=== PATIENT | male | born 1955 | race Caucasian/White ===

== ENCOUNTER 2020-04-12 06:49 | Emergency (ER) | payer BC, OTHER ==
--- OUTSIDE RECORDS SUMMARY | 2020-04-12 06:52 | XMS REPORT | Clinical Summary ---
:1955 Author Organization [facility] Address [address] [place] [id number] Care Team Providers Name Role Phone Maksim Mckinney MD Primary Care Provider Allergies Not on File Medications Not on file Active Problems Not on file Social History Tobacco Use Types Packs/Day Years Used Date Never Assessed Sex Assigned at Date Recorded Not on file Last Filed Vital Signs Not on file Plan of Treatment Health Maintenance Due Date Last Done Comments COLONOSCOPY SCREENING 12/10/2007 SHINGLES VACCINES (#1) 12/10/2007 INFLUENZA VACCINE 01/10/2020 Results Not on fileafter 04/12/2019 Advance Directives For more information, please contact: [phone] Type Date 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
[2020-04-12 07:40] LABS: Protime INR 1.05
[2020-04-12 07:41] LABS: Absolute Lymphocytes (CBC) 0.8 K/uL (0.7-4.9); Hematocrit 44.1 % (39.6-49.0); Lymphocytes % 18.3 % (15.3-44.8); MPV 8.2 fL (7.6-11.3); RBC Red Blood Cell Count 4.68 M/uL (4.33-5.43)
[2020-04-12 07:56] LABS: ALT/SGPT 35 U/L (12-78); AST/SGOT 25 U/L (15-37); Albumin 4.1 g/dL (3.4-5.0); Alkaline Phosphatase 78 U/L (45-117); BUN Blood Urea Nitrogen 15 mg/dL (7-18); Bicarbonate 28 mmol/L (21-32); Bilirubin Direct 0.1 mg/dL (0-0.2); Bilirubin Total 0.5 mg/dL (0.2-1.0); Glucose Level 129 mg/dL (74-106); NT PRO-BNP 24 pg/mL (<125); Potassium 3.8 mmol/L (3.5-5.1); Protein, Total 7.6 g/dL (6.4-8.2); Sodium Level 142 mmol/L (136-145); Troponin (Emerg Dept Use Only) < 0.02 ng/mL (0.0-0.045)
--- NOTE | 2020-04-12 08:32 | RAD REPORT ---
EXAM DESCRIPTION: CT - Head Brain Wo Cont - 04/12/2020 7:31 am CLINICAL HISTORY: DIZZINESS Headache, drowsiness, nausea and vomiting. COMPARISON: No comparisons TECHNIQUE: All CT scans are performed using dose optimization technique as appropriate and may inclu de automated exposure control or mA/KV adjustment according to patient size. FINDINGS: No intracranial hemorrhage, hydrocephalus or extra-axial fluid collection.No areas of brai n edema or evidence of midline shift. The paranasal sinuses and mastoids are clear. The calvarium is intact. IMPRESSION: No acute intracranial abnormality.
[2020-04-12] MEDS ORDERED: MECLIZINE HCL 12.5 MG TAB ONE (08:36)
[2020-04-12] MEDS ORDERED: DIAZEPAM 5 MG TABLET ONE (08:36)
[2020-04-12] MEDS ORDERED: DIAZEPAM 10 MG/2 ML INJ SYRINGE ONE (08:57)
--- NOTE | 2020-04-12 09:23 | RAD REPORT ---
EXAM DESCRIPTION: RAD - Chest Single View - 04/12/2020 7:37 am CLINICAL HISTORY: Chest maddison Chest pain. COMPARISON: No comparisons FINDINGS: Portable technique limits examination quality. The lungs are grossly clear. The heart is normal in size. No displaced fractures. IMPRESSION: No acute intrathoracic process suspected.
--- NOTE | 2020-04-12 09:58 | RAD REPORT ---
EXAM DESCRIPTION: MRI - Brain Wo Cont - 04/12/2020 9:32 am CLINICAL HISTORY: DIZZINESS Headache, drowsiness, CVA symptomology COMPARISON: Head Brain Wo Cont dated 04/12/2020 TECHNIQUE: Multi-sequence, multiplanar MR imaging of the brain was performed without contrast. FINDINGS: No intracranial hemorrhage, hydrocephalus or extra-axial fluid collections. No edema or sh ift of midline structures. No findings to suspect brain mass. DWI is negative for acute CVA. Midline structures are normally formed. Mastoid air cells and paranasal sinuses are clear. IMPRESSION: Negative for acute CVA or other acute intracranial abnormality.
--- NOTE | 2020-04-12 10:09 | ER ---
Nurse's Notes [facility] Name: Dana Selby Age: 64 yrs Sex: Male : 1955 Arrival Date: 04/12/2020 Time: 06:59 Bed 20 Private MD: Diagnosis: Dizziness and giddiness;Vertiginous syndromes in diseases classified elsewhere, unspecified ear Presentation: 04/12 07:08 Chief complaint: N/V and dizziness upon waking today. Coronavirus screen: Client hb presents with at least one sign or symptom that may indicate coronavirus-19. Standard/surgical mask placed on the client. Provider contacted for isolation considerations. Ebola Screen: No symptoms or risks identified at this time. Initial Sepsis Screen: Does the patient meet any 2 criteria? No. Patient's initial sepsis screen is negative. Does the patient have a suspected source of infection? No. Patient's initial sepsis screen is negative. Risk Assessment: Do you want to hurt yourself or someone else? Patient reports no desire to harm self or others. Onset of symptoms was April 12, 2020. 07:08 Method Of Arrival: Wheelchair 07:08 Acuity: CYDNEY 3 hb 07:09 Care prior to arrival: Medication(s) given: zofran 4 mg. Triage Assessment: 07:15 General: Appears in no apparent distress. comfortable, well groomed, well developed, sv Behavior is calm, cooperative, appropriate for age, Last known well was last night at 2200 when he went to bed. Pt woke up this morning at 0530 with the dizziness and nausea. Pt reports that he has had the headache intermittently for the last 2 weeks, has taken a couple of meds OTC with no relief.. Pain: Complains of pain in occipital area and base of the skull Pain currently is 2 out of 10 on a pain scale. Pain began intermittently for 2 weeks. Is intermittent. Neuro: Level of Consciousness is awake, alert, obeys commands, Oriented to person, place, time, situation, County Engineer are equal bilaterally Moves all extremities. Full function Gait is steady, Speech is normal, Facial symmetry appears normal, Facial symmetry: tongue is midline, Reports dizziness, since 0530 headache occipital area, Denies numbness. Cardiovascular: Patient's skin is warm and dry. Rhythm is sinus rhythm. Respiratory: Airway is patent Respiratory effort is even, unlabored, Respiratory pattern is regular, symmetrical. GI: Patient currently denies nausea, stated that he took some Zofran this morning and the nausea has subsided. Derm: Skin is intact, Skin is pink, warm \T\ dry. Musculoskeletal: Circulation, motion, and sensation intact. Range of motion: intact in all extremities. Historical: - Allergies: 07:09 No Known Allergies; hb - Home Meds: 07:09 None [Active]; hb - PMHx: 07:09 Hypertension; hb - PSHx: 07:09 None; hb - Immunization history:: Adult Immunizations up to date. - Social history:: Smoking status: Patient denies any tobacco usage or history of. - Family history:: not pertinent. Screenin:07 Abuse screen: Denies threats or abuse. Denies injuries from another. Nutritional sv screening: No deficits noted. Tuberculosis screening: No symptoms or risk factors identified. Fall Risk None identified. 07:20 VAN Screening: Arm Drift: Patient shows no arm weakness. Patient is VAN negative. sv 07:43 Patient has been NPO before screening. The patient is alert, able to follow commands. sv The patient does not exhibit slurred or garbled speech The patient is not exhibiting difficulty speaking. The patient does not exhibit difficulty understanding words. The patient is able to swallow own secretions with no drooling or need for suction. Patient tolerated one teaspoon of water. No drooling, immediate coughing, gurgling, or clearing of the throat was noted. The patient tolerated 90mL of water. No drooling, immediate coughing, gurgling, or clearing of the throat was noted. The patient passed the bedside swallow screening. Oral medications may be given as ordered. Contact Physician for further diet orders. Provider notified of bedside swallow screening results: Krish Fletcher MD. Assessment: 07:44 Reassessment: Patient appears in no apparent distress at this time. No changes from sv previously documented assessment. Patient and/or family updated on plan of care and expected duration. Pain level reassessed. Patient is alert, oriented x 3, equal unlabored respirations, skin warm/dry/pink. 08:25 Reassessment: Patient appears in no apparent distress at this time. No changes from sv previously documented assessment. Patient and/or family updated on plan of care and expected duration. Pain level reassessed. Patient is alert, oriented x 3, equal unlabored respirations, skin warm/dry/pink. 08:48 Reassessment: Dacia from MRI called and stated that the pt was anxious and sv claustrophobic. Dr Rubio ordered Valium 2mg IVP to be given. Medication given by myself in MRI. Instructed pt to inform staff if he is to need more medication. He stated he would. 09:21 Reassessment: Pt currently still in MRI. sv 10:20 Reassessment: Patient and/or family updated on plan of care and expected duration. Pain ll1 level reassessed. Patient is alert, oriented x 3, equal unlabored respirations, skin warm/dry/pink. Vital Signs: 07:08 BP 154 / 79; Pulse 71; Resp 16; Temp 97.8(O); Pulse Ox 99% on R/A; Weight 78.02 kg; hb Height 5 ft. 6 in. (167.64 cm); Pain 0/10; 08:20 BP 142 / 86; Pulse 60 MON; Resp 14; Pulse Ox 97% on R/A; sv 09:32 BP 158 / 83; Pulse 71 MON; Resp 14; Pulse Ox 100% ; sv 10:34 BP 136 / 82; Pulse 76; Resp 17; Pulse Ox 99% ; ll1 07:08 Body Mass Index 27.76 (78.02 kg, 167.64 cm) hb 08:20 Sinus Rhythm sv 09:32 Sinus Rhythm sv NIH Stroke Scale Scores: 07:20 NIHSS Score: 0 sv 08:21 NIHSS Score: 0 jose j ED Course: 06:59 Patient arrived in ED. am2 07:07 Josie Guadarrama, RN is Primary Nurse. sv 07:07 Arm band placed on Patient placed in an exam room, on a stretcher. sv 07:07 Patient has correct armband on for positive identification. Bed in low position. Call sv light in reach. Adult w/ patient. secured entrance monitor on. Pulse ox on. NIBP on. 07:08 Awaiting ED provider evaluation. sv 07:09 Triage completed. hb 07:15 Inserted saline lock: 20 gauge in right antecubital area, using aseptic technique. sv Blood collected. Flushed right antecubital with 5 ml normal saline. 07:16 EKG done, by ED staff, reviewed by Krish Fletcher MD. sv 07:[address] via wheelchair. sv 07:29 CT Head Brain wo Cont In Process Unspecified. EDMS 07:32 X-ray(s) taken. sv 07:35 Awaiting ED provider evaluation. sv 07:36 XRAY Chest (1 view) In Process Unspecified. EDMS 07:[address] Patient moved back from [address]. sv 07:38 Awaiting lab results, Awaiting radiology results. sv 08:02 Geoff Rubio MD is Attending Physician. jose j 08:06 ED physician to see patient. sv 08:28 Patient moved to MRI via wheelchair. sv 09:29 Patient moved back from MRI. sv 09:30 Awaiting radiology results. sv 09:32 Brain Wo Cont In Process Unspecified. EDMS 09:32 Brain Wo Cont Sent. sv 10:09 Bello Williamson MD is Referral Physician. jose j 10:35 No provider procedures requiring assistance completed. Patient did not have IV access ll1 during this emergency room visit. intact, bleeding controlled, No redness/swelling at site. Pressure dressing applied. Administered Medications: 08:25 Drug: Meclizine 50 mg Route: PO; sv 08:51 Follow up: Response: No adverse reaction sv 08:25 Drug: Valium 2.5 mg {Note: Pt stated that 5mg would be too much for him, pt wants to sv take half at this time.} Route: PO; 08:51 Follow up: Response: No adverse reaction; No change in condition sv 08:50 Drug: Valium 2 mg Route: IVP; Site: right antecubital; sv 09:32 Follow up: Response: No adverse reaction; Marked relief of symptoms sv 09:32 Not Given (Physician Discretion): Valium 2 mg IVP once sv Point of Care Testing: Blood Glucose: 07:15 Blood Glucose: 126 mg/dL; sv Ranges: Outcome: 10:09 Discharge ordered by . jose j 10:32 Patient left the ED. ll1 10:36 Discharged to home ambulatory. ll1 10:36 Condition: stable 10:36 Discharge instructions given to patient, Instructed on discharge instructions, follow up and referral plans. medication usage, Demonstrated understanding of instructions, follow-up care, medications, Prescriptions given X 3. NIH Stroke Scale - NIH Stroke Score Date: 04/12/2020 Time: 07:20 Total Score = 0 1a. Level of Consciousness (LOC) - 0(Alert) 1b. Level of Consciousness (LOC) (Year \T\ Age) - 0(Both) 1c. LOC Commands (Open \T\ Closes Eyes/Cement Mason Helper) - 0(Both) 2. Best Gaze (Lateral Gaze Paresis) - 0(Normal) 3. Visual Field Loss - 0(No visual loss) 4. Facial Palsy - 0(Normal) 5a. Left Arm: Motor (10-second hold) - 0(No drift) 5b. Right Arm: Motor (10-second hold) - 0(No drift) 6a. Left Leg: Motor (5-second hold - always test supine) - 0(No drift) 6b. Right Leg: Motor (5-second hold - always test supine) - 0(No drift) 7. Limb Ataxia (finger/nose \T\ heel/willis - test with eyes open) - 0(Absent) 8. Sensory Loss (pinprick arms/legs/face) - 0(Normal) 9. Best Language: Aphasia (description/naming/reading) - 0(No aphasia) 10. Dysarthria (speech clarity - read or repeat words) - 0(Normal) 11. Extinction and Inattention (visual/tactile/auditory/spatial/personal) - 0(No abnormality) Initials: NIH Stroke Scale - NIH Stroke Score Date: 04/12/2020 Time: 08:21 Total Score = 0 1a. Level of Consciousness (LOC) - 0(Alert) 1b. Level of Consciousness (LOC) (Year \T\ Age) - 0(Both) 1c. LOC Commands (Open \T\ Closes Eyes/Cement Mason Helper) - 0(Both) 2. Best Gaze (Lateral Gaze Paresis) - 0(Normal) 3. Visual Field Loss - 0(No visual loss) 4. Facial Palsy - 0(Normal) 5a. Left Arm: Motor (10-second hold) - 0(No drift) 5b. Right Arm: Motor (10-second hold) - 0(No drift) 6a. Left Leg: Motor (5-second hold - always test supine) - 0(No drift) 6b. Right Leg: Motor (5-second hold - always test supine) - 0(No drift) 7. Limb Ataxia (finger/nose \T\ heel/willis - test with eyes open) - 0(Absent) 8. Sensory Loss (pinprick arms/legs/face) - 0(Normal) 9. Best Language: Aphasia (description/naming/reading) - 0(No aphasia) 10. Dysarthria (speech clarity - read or repeat words) - 0(Normal) 11. Extinction and Inattention (visual/tactile/auditory/spatial/personal) - 0(No abnormality) Initials: jose j Signatures: Dispatcher [employer] EDJosie Heaton RN RN sv Anderson, Corey, MD MD cha Baxter, Heather, RN RN Caitlin Rodgers [facility] Lilian Mcclain RN RN ll1 Corrections: (The following items were deleted from the chart) 07:37 07:15 General: Appears in no apparent distress. comfortable, well groomed, well sv developed, Behavior is calm, cooperative, appropriate for age, sv 09:31 09:30 To radiology for MR STROKE PROTOCOL+MRI.BEE. EDMS
--- NOTE | 2020-04-12 10:10 | EDPHYS ---
Physician Documentation [facility] Name: Dana Selby Age: 64 yrs Sex: Male : 1955 Arrival Date: 04/12/2020 Time: 06:59 Bed 20 Private MD: DIANA Physician Geoff Rubio HPI: 04/12 08:21 This 64 yrs old Male presents to ER via Wheelchair with complaints of jose j Dizziness, Nausea. 08:21 The patient presents with dizziness, a sense of confusion, sense of spinning. Onset: jose j The symptoms/episode began/occurred 4 hour(s) ago. Context: occurred at home, occurred while the patient was getting up from bed. Modifying factors: The symptoms are alleviated by closing eyes, holding head still, the symptoms are aggravated by movement of head, standing up. Associated signs and symptoms: Pertinent positives: headache. Severity of symptoms: At their worst the symptoms were mild. Patient's baseline: Neuro: alert and fully oriented. Historical: - Allergies: 07:09 No Known Allergies; hb - Home Meds: 07:09 None [Active]; hb - PMHx: 07:09 Hypertension; hb - PSHx: 07:09 None; hb - Immunization history:: Adult Immunizations up to date. - Social history:: Smoking status: Patient denies any tobacco usage or history of. - Family history:: not pertinent. ROS: 08:21 Constitutional: Negative for fever, chills, and weight loss, Eyes: Negative for injury, jose j pain, redness, and discharge, ENT: Negative for injury, pain, and discharge, Neck: Negative for injury, pain, and swelling, Cardiovascular: Negative for chest pain, palpitations, and edema, Respiratory: Negative for shortness of breath, cough, wheezing, and pleuritic chest pain, Abdomen/GI: Negative for abdominal pain, nausea, vomiting, diarrhea, and constipation, Back: Negative for injury and pain, : Negative for injury, bleeding, discharge, and swelling, MS/Extremity: Negative for injury and deformity, Skin: Negative for injury, rash, and discoloration, Psych: Negative for depression, anxiety, suicide ideation, homicidal ideation, and hallucinations, Allergy/Immunology: Negative for hives, rash, and allergies, Endocrine: Negative for neck swelling, polydipsia, polyuria, polyphagia, and marked weight changes, Hematologic/Lymphatic: Negative for swollen nodes, abnormal bleeding, and unusual bruising. 08:21 Neuro: Positive for dizziness, headache, of the right frontal area, right side of the back of head, right occipital area and right base of the skull. Exam: 08:21 Constitutional: This is a well developed, well nourished patient who is awake, alert, jose j and in no acute distress. Head/Face: Normocephalic, atraumatic. Eyes: Pupils equal round and reactive to light, extra-ocular motions intact. Lids and lashes normal. Conjunctiva and sclera are non-icteric and not injected. Cornea within normal limits. Periorbital areas with no swelling, redness, or edema. ENT: Nares patent. No nasal discharge, no septal abnormalities noted. Tympanic membranes are normal and external auditory canals are clear. Oropharynx with no redness, swelling, or masses, exudates, or evidence of obstruction, uvula midline. Mucous membranes moist. Neck: Trachea midline, no thyromegaly or masses palpated, and no cervical lymphadenopathy. Supple, full range of motion without nuchal rigidity, or vertebral point tenderness. No Meningismus. Chest/axilla: Normal chest wall appearance and motion. Nontender with no deformity. No lesions are appreciated. Cardiovascular: Regular rate and rhythm with a normal S1 and S2. No gallops, murmurs, or rubs. Normal PMI, no JVD. No pulse deficits. Respiratory: Lungs have equal breath sounds bilaterally, clear to auscultation and percussion. No rales, rhonchi or wheezes noted. No increased work of breathing, no retractions or nasal flaring. Abdomen/GI: Soft, non-tender, with normal bowel sounds. No distension or tympany. No guarding or rebound. No evidence of tenderness throughout. Back: No spinal tenderness. No costovertebral tenderness. Full range of motion. Skin: Warm, dry with normal turgor. Normal color with no rashes, no lesions, and no evidence of cellulitis. MS/ Extremity: Pulses equal, no cyanosis. Neurovascular intact. Full, normal range of motion. Neuro: Awake and alert, GCS 15, oriented to person, place, time, and situation. Cranial nerves II-XII grossly intact. Motor strength 5/5 in all extremities. Sensory grossly intact. Cerebellar exam normal. Normal gait. Psych: Awake, alert, with orientation to person, place and time. Behavior, mood, and affect are within normal limits. 08:25 Neck: External neck: is normal, C-spine: appears grossly normal, no acute changes, jose j Thyroid: appears normal, no acute changes, Trachea: is midline with no obvious abnormalities, no acute changes, ROM/movement: is normal, no acute changes. 08:25 Cardiovascular: Rate: normal, Rhythm: regular, Pulses: Pulses are 4+ in bilateral radial, brachial, femoral, popliteal, posterior tibial and and dorsalis pedis arteries.. Heart sounds: normal, normal S1and S2, no S3 or S4, no murmur, no rub, no gallop, Edema: is not appreciated, JVD: is not appreciated. 08:28 ENT: TM's: not visable, because of cerumen, on the left. jose j Vital Signs: 07:08 BP 154 / 79; Pulse 71; Resp 16; Temp 97.8(O); Pulse Ox 99% on R/A; Weight 78.02 kg; hb Height 5 ft. 6 in. (167.64 cm); Pain 0/10; 08:20 BP 142 / 86; Pulse 60 MON; Resp 14; Pulse Ox 97% on R/A; sv 09:32 BP 158 / 83; Pulse 71 MON; Resp 14; Pulse Ox 100% ; sv 10:34 BP 136 / 82; Pulse 76; Resp 17; Pulse Ox 99% ; ll1 07:08 Body Mass Index 27.76 (78.02 kg, 167.64 cm) hb 08:20 Sinus Rhythm sv 09:32 Sinus Rhythm sv NIH Stroke Scale Scores: 07:20 NIHSS Score: 0 sv 08:21 NIHSS Score: 0 jose j MDM: 08:02 Patient medically screened. jose j 08:24 Differential diagnosis: cardiac arrhythmia, CVA, generalized weakness, idiopathic jose j dizziness, near-syncope, TIA, vertigo. Data reviewed: vital signs, nurses notes, lab test result(s), EKG, radiologic studies, CT scan, MRI, plain films. Data interpreted: lunchroom monitor: rate is 60 beats/min, rhythm is regular, Pulse oximetry: on room air is 97 %. Test interpretation: by ED physician or midlevel provider: ECG, plain radiologic studies. Counseling: I had a detailed discussion with the patient and/or guardian regarding: the historical points, exam findings, and any diagnostic results supporting the discharge/admit diagnosis, lab results, radiology results, the need for outpatient follow up, for definitive care, a neurologist. 04/12 07:20 Order name: Basic Metabolic Panel; Complete Time: 09:49 zb 04/12 07:20 Order name: CBC with Diff; Complete Time: 09:49 zb 04/12 07:20 Order name: LFT's; Complete Time: 09:49 zb 04/12 07:20 Order name: Magnesium; Complete Time: 09:49 zb 04/12 07:20 Order name: NT PRO-BNP; Complete Time: 09:49 zb 04/12 07:20 Order name: PT-INR; Complete Time: 09:49 zb 04/12 07:20 Order name: CT Head Brain wo Cont; Complete Time: 09:49 zb 04/12 07:20 Order name: Troponin (emerg Dept Use Only); Complete Time: 09:49 zb 04/12 07:20 Order name: XRAY Chest (1 view); Complete Time: 09:49 zb 04/12 07:32 Order name: Glucose, Ancillary Testing; Complete Time: 09:49 EDMS 04/12 09:32 Order name: Brain Wo Cont; Complete Time: 10:08 EDMS 04/12 07:20 Order name: EKG; Complete Time: 07:21 zb 04/12 07:20 Order name: Cardiac monitoring; Complete Time: 07:32 zb 04/12 07:20 Order name: EKG - Nurse/Tech; Complete Time: 07:32 zb 04/12 07:20 Order name: IV Saline Lock; Complete Time: 07:32 zb 04/12 07:20 Order name: Labs collected and sent; Complete Time: 07:32 zb 04/12 07:20 Order name: O2 Per Protocol; Complete Time: 07:32 zb 04/12 07:20 Order name: O2 Sat Monitoring; Complete Time: 07:32 zb Administered Medications: 08:25 Drug: Meclizine 50 mg Route: PO; sv 08:51 Follow up: Response: No adverse reaction sv 08:25 Drug: Valium 2.5 mg {Note: Pt stated that 5mg would be too much for him, pt wants to sv take half at this time.} Route: PO; 08:51 Follow up: Response: No adverse reaction; No change in condition sv 08:50 Drug: Valium 2 mg Route: IVP; Site: right antecubital; sv 09:32 Follow up: Response: No adverse reaction; Marked relief of symptoms sv 09:32 Not Given (Physician Discretion): Valium 2 mg IVP once sv Point of Care Testing: Blood Glucose: 07:15 Blood Glucose: 126 mg/dL; sv Ranges: Critical Glucose Levels:Adult <50 mg/dl or >400 mg/dl <40 mg/dl or >180 mg/dl Disposition: 04/12/20 10:09 Discharged to Home. Impression: Dizziness and giddiness, Vertiginous syndromes in diseases classified elsewhere, unspecified ear. - Condition is Stable. - Discharge Instructions: Benign Positional Vertigo, Dizziness, Vertigo, Near-Syncope, Qvtm-zh-[id number], Vertigo, Ookl-py-Ujkb, Aspirin and Your Heart, Dizziness, Coww-cw-Rpme. - Prescriptions for Meclizine 25 mg Oral Tablet - take 1 tablet by ORAL route every 8 hours As needed; 30 tablet. Zofran 4 mg Oral Tablet - take 1 tablet by ORAL route every 12 hours As needed; 20 tablet. Medrol (Jack) 4 mg Oral Tablets, Dose Pack - take 1 tablet by ORAL route as directed - follow package instructions; 1 packet. - Medication Reconciliation Form, Thank You Letter, Antibiotic Education, Prescription Opioid Use form. - Follow up: Private Physician; When: 2 - 3 days; Reason: Recheck today's complaints, Continuance of care, Re-evaluation by your physician. Follow up: Bello Williamson; When: 2 - 3 days; Reason: Recheck today's complaints, Continuance of care, Re-evaluation by your physician. - Problem is new. - Symptoms have improved. NIH Stroke Scale - NIH Stroke Score Date: 04/12/2020 Time: 07:20 Total Score = 0 1a. Level of Consciousness (LOC) - 0(Alert) 1b. Level of Consciousness (LOC) (Year \T\ Age) - 0(Both) 1c. LOC Commands (Open \T\ Closes Eyes/Drum Saw Operator) - 0(Both) 2. Best Gaze (Lateral Gaze Paresis) - 0(Normal) 3. Visual Field Loss - 0(No visual loss) 4. Facial Palsy - 0(Normal) 5a. Left Arm: Motor (10-second hold) - 0(No drift) 5b. Right Arm: Motor (10-second hold) - 0(No drift) 6a. Left Leg: Motor (5-second hold - always test supine) - 0(No drift) 6b. Right Leg: Motor (5-second hold - always test supine) - 0(No drift) 7. Limb Ataxia (finger/nose \T\ heel/willis - test with eyes open) - 0(Absent) 8. Sensory Loss (pinprick arms/legs/face) - 0(Normal) 9. Best Language: Aphasia (description/naming/reading) - 0(No aphasia) 10. Dysarthria (speech clarity - read or repeat words) - 0(Normal) 11. Extinction and Inattention (visual/tactile/auditory/spatial/personal) - 0(No abnormality) Initials: NIH Stroke Scale - NIH Stroke Score Date: 04/12/2020 Time: 08:21 Total Score = 0 1a. Level of Consciousness (LOC) - 0(Alert) 1b. Level of Consciousness (LOC) (Year \T\ Age) - 0(Both) 1c. LOC Commands (Open \T\ Closes Eyes/Drum Saw Operator) - 0(Both) 2. Best Gaze (Lateral Gaze Paresis) - 0(Normal) 3. Visual Field Loss - 0(No visual loss) 4. Facial Palsy - 0(Normal) 5a. Left Arm: Motor (10-second hold) - 0(No drift) 5b. Right Arm: Motor (10-second hold) - 0(No drift) 6a. Left Leg: Motor (5-second hold - always test supine) - 0(No drift) 6b. Right Leg: Motor (5-second hold - always test supine) - 0(No drift) 7. Limb Ataxia (finger/nose \T\ heel/willis - test with eyes open) - 0(Absent) 8. Sensory Loss (pinprick arms/legs/face) - 0(Normal) 9. Best Language: Aphasia (description/naming/reading) - 0(No aphasia) 10. Dysarthria (speech clarity - read or repeat words) - 0(Normal) 11. Extinction and Inattention (visual/tactile/auditory/spatial/personal) - 0(No abnormality) Initials: jose j Signatures: Dispatcher [employer] [facility] Josie Guadarrama, RN Geoff Watkins MD MD cha Baxter, Heather RN RN Lilian Burt RN RN ll1 Jory Mayorga RN RN zb Corrections: (The following items were deleted from the chart) 09:31 08:10 MR STROKE PROTOCOL+MRI.RAD.BRZ ordered. [facility] 10:32 10:09 04/12/2020 10:09 Discharged to Home. Impression: Dizziness and giddiness; ll1 Vertiginous syndromes in diseases classified elsewhere, unspecified ear. Condition is Stable. Discharge Instructions: Benign Positional Vertigo, Dizziness, Vertigo, Near-Syncope, Samy-da-Bryv, Vertigo, Jxhm-mg-Htuv, Aspirin and Your Heart, Dizziness, Hxpr-uu-Hcwj. Prescriptions for Meclizine 25 mg Oral Tablet - take 1 tablet by ORAL route every 8 hours As needed; 30 tablet, Zofran 4 mg Oral Tablet - take 1 tablet by ORAL route every 12 hours As needed; 20 tablet, Medrol (Jack) 4 mg Oral Tablets, Dose Pack - take 1 tablet by ORAL route as directed - follow package instructions; 1 packet. and Forms are Medication Reconciliation Form, Thank You Letter, Antibiotic Education, Prescription Opioid Use. Follow up: Private Physician; When: 2 - 3 days; Reason: Recheck today's complaints, Continuance of care, Re-evaluation by your physician. Follow up: Bello Williamson; When: 2 - 3 days; Reason: Recheck today's complaints, Continuance of care, Re-evaluation by your physician. Problem is new. Symptoms have improved. jose j
[2020-04-12 10:39] VITALS: TEMP 97.8
[2020-04-12 10:44] VITALS: BP 158/83; O2SAT 100
== END 2020-04-12 10:32 | disposition home or self-care (01) ==
LOC: ER 06:49
DX: R42 Dizziness and giddiness (principal); H82.9 Vertiginous syndromes in diseases classified elsewhere, unspecified ear; I10 Essential (primary) hypertension
CPT/HCPCS: 93005; 85025; 80048; 36415; 83735; 85610; 82947; 80076; 84484; 83880; 70450; 71045; 70551; 96374; 99285; J3360

== ENCOUNTER 2022-07-06 10:35 | Emergency (ER) | payer BC, OTHER ==
--- OUTSIDE RECORDS SUMMARY | 2022-07-06 10:39 | XMS REPORT | Continuity of Care Document ---
:1955 Author Organization [facility] t Address [address] [place] [place] [id number] Care Team Providers Name Role Phone Maksim Mckinney MD Primary Care Physician Maksim Mckinney MD Attending Clinician Problems This patient has no known problems. Allergies, Adverse Reactions, Alerts This patient has no known allergies or adverse reactions. Social History Social Habit Start Date Stop Date Quantity Comments Source Sex Assigned At [birth year] [facility] 00:00:00 00:00:00 Smoking Status Start Date Stop Date Source Tobacco smoking consumption unknown [facility] Medications This patient has no known medications. Procedures Procedure Date / Time Performed Performing Clinician [facility] e US VASCULAR SCREENING 2022-02-14 15:46:39 Maksim Mckinney [facility] HEART SCAN PLUS CT HEART SCAN PLUS W 2022-02-14 15:16:31 Maksim Mckinney [facility] PHYSICIAN ORDER Plan of Care Planned Activity Planned Date Details Comments Source Future Scheduled 2022-05-27 Hepatitis C screening [facility] Test 13:37:37 (procedure) [code = [id number]] Future Scheduled 2022-05-27 COLONOSCOPY SCREENING [facility] Test 13:37:37 [code = COLONOSCOPY SCREENING] Future Scheduled 2022-05-27 SHINGLES VACCINES (1 [facility] Test 13:37:37 of 2) [code = SHINGLES VACCINES (1 of 2)] Future Scheduled 2022-05-27 COVID-19 [facility]ACCINE ([facility] 13:37:37 Booster for Moderna series) [code = COVID-19 VACCINE (4 - Booster for Moderna series)] Future Scheduled 2022-05-27 INFLUENZA VACCINE [facility] Test 13:37:37 [code = INFLUENZA VACCINE] Encounters Start End Encounter Admission Attending Care Care Encounter Source Date/Time Date/Time Type Type Clinicians Facility Department ID 2022-02-14 2022-02-14 [facility], 1.2.840.1 [id number] [facility] 09:50:52 23:59:00 Encounter Maksim [id number] 3.430.2.7 Hospit a .3.308139 l .8 2022-02-14 2022-02-14 [facility] 1.2.840.1 [id number] Methodi 09:50:34 23:59:00 Encounter Maksim [id number] 3.430.2.7 Hospit a .3.801990 l .8 2022-02-14 2022-02-14 Outpatient [facility] [id number] 0[address] [place] 00:00:00 00:00:[address] 2022-02-14 2022-02-14 Outpatient [facility] [id number] [address] [place] [address] 00:00:00 00:00:[address] 2022-02-14 2022-02-14 Travel 1.2.840.1 [id number] [facility] 00:00:00 00:00:[id number] 3.430.2.7 0.2.7.3.698 Ho spita .[id number] 084.8 l .8 2022-01-19 2022-01-19 Transcribe [facility] 1.2.840.1 [id number] [facility] 00:00:00 00:00:00 Orders Maksim [id number] 3.430.2.7 Hospit a .3.490099 l .8 Results This patient has no known results.
--- NOTE | 2022-07-06 11:26 | RAD REPORT ---
EXAM DESCRIPTION: CT - Ct Stroke Brain Wo Cont - 07/06/2022 11:16 am CLINICAL HISTORY: Vertigo Headache, drowsiness, CVA symptomology COMPARISON: Head Brain Wo Cont dated 04/12/2020 TECHNIQUE: All CT scans are performed using dose optimization technique as appropriate and may inclu de automated exposure control or mA/KV adjustment according to patient size. FINDINGS: No intracranial hemorrhage, hydrocephalus or extra-axial fluid collection.No areas of brai n edema or evidence of midline shift. The paranasal sinuses and mastoids are clear. The calvarium is intact. IMPRESSION: No acute intracranial abnormality. If there is continued clinical concern for CVA, MR imaging of the brain would be recommended. The findings were discussed with Dr Schaefer in the ER on 07/06/2022 at 11:22 a.m. by telephone.
[2022-07-06] MEDS ORDERED: ONDANSETRON 4 MG/2 ML VIAL ONE (12:02)
[2022-07-06] MEDS ORDERED: MECLIZINE HCL 12.5 MG TAB ONE (12:02)
[2022-07-06 12:04] LABS: Absolute Lymphocytes (CBC) 0.8 K/uL (0.7-4.9); Hematocrit 46.3 % (39.6-49.0); Lymphocytes % 13.2 % (15.3-44.8); MCV 95.7 fL (80-100); MPV 7.4 fL (7.6-11.3); RBC Red Blood Cell Count 4.84 M/uL (4.33-5.43)
[2022-07-06 12:11] LABS: Protime INR 1.11
[2022-07-06 12:23] LABS: Potassium 3.5 mmol/L (3.5-5.1); Troponin High Sensitivity 7.9 pg/mL (<58.9)
--- NOTE | 2022-07-06 12:35 | ER ---
Nurse's Notes [facility] Name: Dana Selby Age: 66 yrs Sex: Male : 1955 Arrival Date: 07/06/2022 Time: 10:37 Bed 14 Private MD: Diagnosis: Other peripheral vertigo;Nausea with vomiting, unspecified Presentation: 07/06 10:45 Chief complaint: Patient states: "I'm here for vertigo and I've been taking meclizine aa5 every 8 hours and it hasn't touched it". Pt reports nausea and reports dull headache to right side of head. Coronavirus screen: At this time, the client does not indicate any symptoms associated with coronavirus-19. Ebola Screen: Patient denies travel to an Ebola-affected area in the 21 days before illness onset. Initial Sepsis Screen: Does the patient meet any 2 criteria? No. Patient's initial sepsis screen is negative. Does the patient have a suspected source of infection? No. Patient's initial sepsis screen is negative. Risk Assessment: Do you want to hurt yourself or someone else? Patient reports no desire to harm self or others. Onset of symptoms was June 2022. 10:45 Acuity: CYDNEY 3 aa5 10:45 Method Of Arrival: Ambulatory aa5 Triage Assessment: 12:10 Pain: Denies pain. kr3 13:04 General: Appears in no apparent distress. comfortable, Behavior is calm, cooperative, kr3 appropriate for age. Historical: - Allergies: 10:47 No Known Allergies; aa5 - Home Meds: 11:06 Famotidine Oral 40 mg daily [Active]; amlodipine oral 5 mg daily [Active]; atorvastatin aa5 20mg daily [Active]; losartan 25mg daily [Active]; Aspirin Oral 81 mg daily [Active]; - PMHx: 10:44 Hypertension; aa5 10:47 Hypercholesterolemia; aa5 - PSHx: 10:47 Vasectomy; aa5 - Immunization history:: Adult Immunizations unknown. - Social history:: Smoking status: Patient denies any tobacco usage or history of. Screenin:10 [facility] ED Fall Risk Assessment (Adult) History of falling in the last 3 months, kr3 including since admission No falls in past 3 months (0 pts) Confusion or Disorientation No (0 pts) Intoxicated or Sedated No (0 pts) Impaired Gait No (0 pts) Mobility Assist Device Used No (0 pt) Altered Elimination No (0 pt) Score/Fall Risk Level 0 - 2 = Low Risk Oriented to surroundings, Maintained a safe environment, Educated pt \\T\\ family on fall prevention, incl call for assistance when getting out of bed, Assessed \\T\\ reinforced patient's understanding of fall precautions, Hourly rounding (assess needs \\T\\ fall precautionary measures) done. Tuberculosis screening: No symptoms or risk factors identified. 13:03 Abuse screen: Denies threats or abuse. Nutritional screening: No deficits noted. kr3 Assessment: 12:35 Reassessment: Patient appears in no apparent distress at this time. Patient and/or kr3 family updated on plan of care and expected duration. Pain level reassessed. Patient is alert, oriented x 3, equal unlabored respirations, skin warm/dry/pink. Vital Signs: 10:45 BP 159 / 72; Pulse 72; Resp 16 S; Temp 97.7(TE); Pulse Ox 100% on R/A; Weight 79.38 kg aa5 (R); Height 5 ft. 6 in. (167.64 cm) (R); 12:36 BP 132 / 78; Pulse 53; Resp 18; Pulse Ox 99% on R/A; kr3 10:45 Body Mass Index 28.25 (79.38 kg, 167.64 cm) aa5 ED Course: 10:37 Patient arrived in ED. as 10:39 Chilo Schaefer MD is Attending Physician. jr11 10:44 Arm band placed on. aa5 10:46 Triage completed. aa5 10:50 Bed in low position. Call light in reach. Side rails up X 1. kr3 11:11 Pushpa Upton, WOLFGANG is Primary Nurse. kr3 11:17 CT Stroke Brain w/o Contrast In Process Unspecified. EDMS 12:01 Inserted saline lock: 22 gauge in left forearm, using aseptic technique. Blood kr3 collected. 12:36 Bello Williamson MD is Referral Physician. jr11 13:06 No provider procedures requiring assistance completed. IV discontinued, intact, kr3 bleeding controlled, No redness/swelling at site. Pressure dressing applied. Administered Medications: 12:07 Drug: Zofran (Ondansetron) 4 mg Route: IVP; Site: left forearm; kr3 13:07 Follow up: Response: No adverse reaction kr3 12:08 Drug: Meclizine 25 mg Route: PO; kr3 13:07 Follow up: Response: No adverse reaction kr3 Medication: 13:06 VIS not applicable for this client. kr3 Outcome: 12:35 Discharge ordered by . 11 13:02 Patient left the ED. kr3 13:06 Discharged to home ambulatory. kr3 13:06 Condition: stable 13:06 Discharge instructions given to patient, Instructed on discharge instructions, follow up and referral plans. medication usage, Demonstrated understanding of instructions, follow-up care, medications, Prescriptions given X 2. Signatures: Dispatcher [employer] Maria Arcos Audri, RN RN aa5 Chilo Schaefer MD MD [id number] Pushpa Upton RN RN kr3
--- NOTE | 2022-07-06 12:36 | EDPHYS ---
Physician Documentation [facility] Name: Dana Selby Age: 66 yrs Sex: Male : 1955 Arrival Date: 07/06/2022 Time: 10:37 Bed 14 Private MD: ED Physician Chilo Schaefer HPI: 07/06 11:00 This 66 yrs old Male presents to ER via Ambulatory with complaints of Vertigo. jr11 11:00 The patient presents with sense of spinning, vertigo. Onset: The symptoms/episode jr11 began/occurred 3 day(s) ago. Context: occurred at home. Modifying factors: The symptoms are alleviated by Antivert, the symptoms are aggravated by nothing. Associated signs and symptoms: Pertinent negatives: abdominal pain, combativeness, syncope. Severity of symptoms: in the emergency department the symptoms are unchanged. 11:07 Patient is a 66-year-old that has had prior episodes of vertigo in the past, has seen jr11 Dr. Williamson in the past. 3 days of vertigo-like sensation woke up also with some right shoulder soreness but no motor or sensory deficit. Denies any other complaints, no fever at home. Historical: - Allergies: 10:47 No Known Allergies; aa5 - Home Meds: 11:06 Famotidine Oral 40 mg daily [Active]; amlodipine oral 5 mg daily [Active]; atorvastatin aa5 20mg daily [Active]; losartan 25mg daily [Active]; Aspirin Oral 81 mg daily [Active]; - PMHx: 10:44 Hypertension; aa5 10:47 Hypercholesterolemia; aa5 - PSHx: 10:47 Vasectomy; aa5 - Immunization history:: Adult Immunizations unknown. - Social history:: Smoking status: Patient denies any tobacco usage or history of. ROS: 11:00 All other systems are negative. jr11 Exam: 11:00 Constitutional: This is a well developed, well nourished patient who is awake, alert, jr11 and in no acute distress. Head/Face: Normocephalic, atraumatic. Eyes: Extra-ocular motions intact. Lids and lashes normal. Conjunctiva and sclera are non-icteric and not injected. Cornea within normal limits. Periorbital areas with no swelling, redness, or edema. ENT: Nares patent. No nasal discharge, no septal abnormalities noted. Oropharynx with no redness, swelling, or masses, exudates, or evidence of obstruction, uvula midline. Mucous membranes moist. Neck: Trachea midline, no thyromegaly or masses palpated, and no cervical lymphadenopathy. Supple, full range of motion without nuchal rigidity, or vertebral point tenderness. No Meningismus. Chest/axilla: Normal chest wall appearance and motion. Nontender with no deformity. No lesions are appreciated. Cardiovascular: Regular rate and rhythm with a normal S1 and S2. No gallops, murmurs, or rubs. Normal PMI, no JVD. No pulse deficits. Respiratory: Lungs have equal breath sounds bilaterally, clear to auscultation and percussion. No rales, rhonchi or wheezes noted. No increased work of breathing, no retractions or nasal flaring. Abdomen/GI: Soft, non-tender, with normal bowel sounds. No distension or tympany. No guarding or rebound. No evidence of tenderness throughout. Skin: Warm, dry with normal turgor. Normal color with no rashes, no lesions, and no evidence of cellulitis. MS/ Extremity: Pulses equal, no cyanosis. Neurovascular intact. Full, normal range of motion. Neuro: Awake and alert, GCS 15, oriented to person, place, time, and situation. No gross motor or sensory deficits. Vital Signs: 10:45 BP 159 / 72; Pulse 72; Resp 16 S; Temp 97.7(TE); Pulse Ox 100% on R/A; Weight 79.38 kg aa5 (R); Height 5 ft. 6 in. (167.64 cm) (R); 12:36 BP 132 / 78; Pulse 53; Resp 18; Pulse Ox 99% on R/A; kr3 10:45 Body Mass Index 28.25 (79.38 kg, 167.64 cm) aa5 MDM: 10:59 Patient medically screened. jr11 11:00 Differential diagnosis: generalized weakness, vertigo. Data reviewed: vital signs, jr11 nurses notes. Historians other than the Patient: Daughter/Son: Son: EM doc, states he has been treating pt with meclizine x 3 days . 11:47 Consideration of Admission/Observation Escalation of care including jr11 admission/observation considered. Vertigo peripheral, not central help desk consultant agrees. Management of patient was discussed with the following: Associate Pastor: emilia Williamson . Independent interpretation of the following test(s) in the Emergency Department CT Scan: My interpretation is negative blood, ischemia . ED course: EKG interpreted by me shows normal sinus rhythm, normal axis, normal intervals, no acute ST changes.. 07/06 11:07 Order name: Basic Metabolic Panel; Complete Time: 12:32 07/06 11:07 Order name: CBC with Diff; Complete Time: 12:32 07/06 11:07 Order name: High Sensitivity Troponin; Complete Time: 12:32 07/06 11:07 Order name: Protime (+inr); Complete Time: 12:32 07/06 11:07 Order name: Ptt, Activated; Complete Time: 12:32 07/06 11:07 Order name: CT Stroke Brain w/o Contrast; Complete Time: 11:47 07/06 11:07 Order name: EKG; Complete Time: 11:07 07/06 11:07 Order name: Cardiac monitoring; Complete Time: 11:56 07/06 11:07 Order name: EKG - Nurse/Tech; Complete Time: 12:02 07/06 11:07 Order name: IV Saline Lock; Complete Time: 11:56 07/06 11:07 Order name: Labs collected and sent; Complete Time: 11:56 07/06 11:07 Order name: NPO; Complete Time: 11:56 07/06 11:07 Order name: O2 Per Protocol; Complete Time: 11:56 07/06 11:07 Order name: O2 Sat Monitoring; Complete Time: 11:56 07/06 11:07 Order name: Stroke Swallow Screen; Complete Time: 12:08 Administered Medications: 12:07 Drug: Zofran (Ondansetron) 4 mg Route: IVP; Site: left forearm; kr3 13:07 Follow up: Response: No adverse reaction kr3 12:08 Drug: Meclizine 25 mg Route: PO; kr3 13:07 Follow up: Response: No adverse reaction kr3 Disposition Summary: 07/06/22 12:35 Discharge Ordered Location: Home [facility] Condition: Stable jr11 Diagnosis - Other peripheral vertigo jr11 - Nausea with vomiting, unspecified jr11 Followup: jr11 - With: Bello Williamson MD - When: 2 - 3 days - Reason: Re-evaluation by your physician Discharge Instructions: - Discharge Summary Sheet jr11 - Vertigo jr11 Forms: - Medication Reconciliation Form jr11 - Thank You Letter jr11 - Antibiotic Education jr11 - Prescription Opioid Use jr11 Prescriptions: - Zofran 4 mg Oral Tablet - take 1 tablet by ORAL route every 12 hours As needed; 20 tablet; Refills: 0, jr11 Product Selection Permitted Signatures: Dispatcher [employer] Tatyana Valadez, RN RN aa5 Chilo Schaefer MD MD jr11 Pushpa Upton RN RN kr3
[2022-07-06 13:59] VITALS: TEMP 97.7
[2022-07-06 14:01] VITALS: BP 132/78; O2SAT 99
--- NOTE | 2022-07-07 13:18 | EKG ---
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
== END 2022-07-06 13:02 | disposition home or self-care (01) ==
LOC: ER 10:35
DX: H81.399 Other peripheral vertigo, unspecified ear (principal); I10 Essential (primary) hypertension
CPT/HCPCS: 93005; 85025; 80048; 36415; 85610; 85730; 84484; 70450; 96374; 99284; J8597; J2405